=== PATIENT | female | born 1950 | race Caucasian/White ===

== ENCOUNTER 2023-09-03 07:02 | Day surgery (SDC) | payer MEDICARE, OTHER, SELFPAY ==
--- NOTE | 2023-09-03 07:11 | MR_ITS ---
The [address] [address] Patient Name: ALICE VELAZCO MRN: [facility]:[id number] date: 1950 Sex: F Assigned Patient Location: MRI Current Patient Location: MRI Accession/Order Number: [id number] Exam Date: 09/03/2023 08:35 Report Date: 09/03/2023 13:46 At the request of: SIMONE COHN Procedure: MR hip RT w con EXAMINATION: MR hip RT w con HISTORY: Acute Right Hip Pain M25.551 COMPARISON: No relevant comparison available. TECHNIQUE: A comprehensive examination was performed utilizing a variety of imaging planes and imaging parameters to optimize visualization of suspected pathology. Images were performed without contrast. FINDINGS: FEMORAL HEAD: Normal. No AVN, fracture, or significant arthropathy. ACETABULUM: Normal. No fracture or significant arthropathy. OTHER BONES: No acute fracture, dislocation or bone edema. Marginal osteophyte formation consistent with mild osteoarthritis LABRUM: Ill-defined superior labrum with extension of contrast outside of the expected joint space EFFUSIONS: None. No synovitis or loose bodies. BURSAE: Normal. No evidence of iliopsoas or trochanteric bursitis. TENDONS: Normal. Normal gluteus tendons, iliopsoas tendon, and hamstring origin. MUSCLES: Normal. No tear or strain. No inappropriate atrophy. OTHER: Negative. MR/MR hip RT w con IMPRESSION: Mild osteoarthritis Superior labral tear Electronically authenticated by: CHRISTIE ALAS Date: 09/03/2023 13:46
--- NOTE | 2023-09-03 07:11 | FL_ITS ---
[address] [address] Patient Name: ALICE VELAZCO MRN: [id number] date: 1950 Sex: F Assigned Patient Location: MRI Current Patient Location: MRI Accession/Order Number: [id number] Exam Date: 09/03/2023 07:45 Report Date: 09/03/2023 08:41 At the request of: SIMONE COHN Procedure: FL arthrogram hip EXAMINATION: FL arthrogram hip, FL guided needle placement HISTORY: Severe right hip pain COMPARISON: No relevant comparison available. TECHNIQUE: An arthrogram was performed under fluoroscopic guidance using non-ionic contrast material in the usual sterile manner after obtaining informed consent. Standard level fluoroscopic mode of operation utilized. 0.8 minutes of fluoroscopy, 3 images FINDINGS: JOINT: Right hip NEEDLE: 25 gauge, 3.5 spinal needle. MEDICATION: 4cc buffered 1% lidocaine for subcutaneous anesthesia 2cc Omnipaque-240 iodinated contrast to visualize the joint space 40 mg Depo-Medrol and one mL, 3 mL's of 0.5% bupivacaine, 3 cc of sterile saline injected into the joint space. Dotarem 0.2 mL TECHNIQUE: Anterior approach with prior localization of the femoral artery. A single stick was successful in gaining access to the joint space. CLINICAL: 6 out of 10 pain before the injection. 0 out of 10 pain following the injection COMPLICATIONS: None. OTHER: Negative. FL/FL arthrogram hip IMPRESSION: Technically successful therapeutic and diagnostic arthrogram for the purposes of MRI Electronically authenticated by: CHRISTIE ALAS Date: 09/03/2023 08:41
--- NOTE | 2023-09-03 07:35 | FL_ITS ---
[address] [address] Patient Name: ALICE VELAZCO MRN: [id number] date: 1950 Sex: F Assigned Patient Location: MRI Current Patient Location: MRI Accession/Order Number: [id number] Exam Date: 09/03/2023 07:45 Report Date: 09/03/2023 08:41 At the request of: SIMONE COHN Procedure: FL guided needle placement EXAMINATION: FL arthrogram hip, FL guided needle placement HISTORY: Severe right hip pain COMPARISON: No relevant comparison available. TECHNIQUE: An arthrogram was performed under fluoroscopic guidance using non-ionic contrast material in the usual sterile manner after obtaining informed consent. Standard level fluoroscopic mode of operation utilized. 0.8 minutes of fluoroscopy, 3 images FINDINGS: JOINT: Right hip NEEDLE: 25 gauge, 3.5 spinal needle. MEDICATION: 4cc buffered 1% lidocaine for subcutaneous anesthesia 2cc Omnipaque-240 iodinated contrast to visualize the joint space 40 mg Depo-Medrol and one mL, 3 mL's of 0.5% bupivacaine, 3 cc of sterile saline injected into the joint space. Dotarem 0.2 mL TECHNIQUE: Anterior approach with prior localization of the femoral artery. A single stick was successful in gaining access to the joint space. CLINICAL: 6 out of 10 pain before the injection. 0 out of 10 pain following the injection COMPLICATIONS: None. OTHER: Negative. FL/FL guided needle placement IMPRESSION: Technically successful therapeutic and diagnostic arthrogram for the purposes of MRI Electronically authenticated by: CHRISTIE ALAS Date: 09/03/2023 08:41
[2023-09-03] MEDS: LIDOCAINE HCL 15 ML, SODIUM BICARBONATE 1 MEQ INJ (08:15)
[2023-09-03] MEDS: TRIAMCINOLONE ACETONIDE 40 MG/ML VIAL INJ (08:15)
--- NOTE | 2023-09-03 08:47 | SUR.PREOP ---
08/28/23 Pt instructed on procedure, date, time, and prep.
== END 2023-09-03 08:35 | disposition home or self-care (01) ==
LOC: MRI 07:02
PROVIDERS: Radiology Diagnostic Radiology; PCP Personal Emergency Response Attendant; Visit Provider Personal Emergency Response Attendant
DX: M25.551 Pain in right hip (principal); M24.151 Other articular cartilage disorders, right hip; S73.191A Other sprain of right hip, initial encounter; M16.11 Unilateral primary osteoarthritis, right hip
CPT/HCPCS: 27093; 73722; 77002; A9575; Q9967